=== PATIENT | female | born 1960 | race Caucasian/White ===

== ENCOUNTER 2018-07-16 23:16 | Observation (INO) | payer OTHER ==
[2018-07-16] MEDS ORDERED: Thiamine IV* 100 MG, Folic Acid IV* 1 MG, Multiple Vitamin IV ADULT* 10 ML in NS 0.9% 1... IV ONE (23:47)
[2018-07-16] MEDS ORDERED: LORazepam INJ* 2 MG/ML 1 ML VIAL IV PUSH ONE (23:54)
[2018-07-16] MEDS ORDERED: Ondansetron INJ* 2 MG/ML VIAL IV ONE (23:54)
[2018-07-16] MEDS ORDERED: Lorazepam PYXIS KEY PRN (23:54)
[2018-07-16] MEDS ORDERED: Lorazepam PYXIS KEY ONE (23:58)
[2018-07-16] MEDS ORDERED: LORazepam INJ* 2 MG/ML 1 ML VIAL ONE (23:59)
[2018-07-16] MEDS ORDERED: NS 0.9% 1000 ML** 1,000 ML ONE (23:59)
[2018-07-17 00:21] LABS: ABS Basophils 0.1 10^3/ul (0-0.2); ABS Lymphocytes 2.5 10^3/ul (1.0-4.8); ABS Monocytes 0.6 10^3/ul (0-0.8); ABS Neutrophils 9.2 10^3/ul (1.5-7.7); Hematocrit 36 % (35-47); Hemoglobin 12.5 g/dL (12.0-16.0); Lymphocyte % 20.4 %; Mean Corpuscular HGB Conc 35 g/dL (31-36); Mean Corpuscular Hemoglobin 30 pg (27-31); Mean Corpuscular Volume 87 fL (80-97); Mean Platelet Volume 7.1 fL (7.4-10.4); Platelet Count 244 10^3/uL (150-450); Red Blood Count 4.15 10^6 /uL (3.70-4.87); Red Cell Distribution Width 14 % (10-15); White Blood Count 12.3 10^3/uL (3.5-10.8)
--- NOTE | 2018-07-17 00:32 | ED ---
Substance Abuse/Use - HPI Summary HPI Summary: 57-year-old female presents with alcohol withdrawal symptoms yesterday. She relates drinking about a liter of vodka a day. States she stopped drinking yesterday. She states that she has felt very ill. She denies nausea vomiting. She states she has not been able to keep anything down today. She admits to a moderately severe headache. She has tremor in her arms and legs. She admits to anxiety and agitation. Denies any auditory or visual or tactile hallucinations. She states she has gone through withdrawals in the past and has had a seizure due to such and DTs. She denies any drug use. Has no medical conditions. - History Of Current Complaint Chief Complaint: EDOverdose Stated Complaint: ETOH PER EMS Time Seen by Provider: 07/16/18 23:45 - Allergies/Home Medications Allergies/Adverse Reactions: Allergies Allergy/AdvReac Type Severity Reaction Status Date / Time MS Sulfa Drugs [Sulfa Drugs] Allergy Unknown Unknown Verified 10/31/16 14:24 Reaction Details Home Medications: Home Medications NK [No Home Medications Reported] 07/17/18 [History Confirmed 07/17/18] PMH/Surg Hx/FS Hx/Imm Hx Endocrine/Hematology History: Denies: Hx Anticoagulant Therapy, Hx Diabetes Cardiovascular History: Denies: Hx Hypertension, Hx Pacemaker/ICD Respiratory History: Denies: Hx Asthma GI History: Reports: Other GI Disorders - CONSTIPATION History: Denies: Hx Renal Disease Musculoskeletal History: Reports: Hx Bursitis Denies: Hx Osteoporosis Sensory History: Reports: Hx Contacts or Glasses Denies: Hx Hearing Aid Opthamlomology History: Reports: Hx Contacts or Glasses Neurological History: Reports: Hx Seizures - x3 in 3-4 yrs, EtOH withdrawal related Psychiatric History: Reports: Hx Anxiety, Hx Depression, Hx Substance Abuse - alcohol, "1 liter/day x 30 years" Denies: Hx Panic Disorder Infectious Disease History: No Infectious Disease History: Denies: Traveled Outside the [place] in Last 30 Days - Family History Known Family History: Positive: Other - father of pancreatic cancer - Social History Alcohol Use: Daily Alcohol Amount: 1L of vodka Substance Use Type: Reports: None Substance Use Comment - Amount & Last Used: 3 times a year Hx Tobacco Use: Yes Smoking Status (MU): Current Every Day Smoker Type: Cigarettes Review of Systems Negative: Fever Negative: Chest Pain Negative: Shortness Of Breath Positive: Abdominal Pain, Vomiting, Nausea Neurological: Other - tremors Positive: Headache All Other Systems Reviewed And Are Negative: Yes Physical Exam Triage Information Reviewed: Yes Vital Signs On Initial Exam: Initial Vitals Temp Pulse Resp BP Pulse Ox 98.4 F 101 20 123/87 98 07/16/18 23:25 07/16/18 23:25 07/16/18 23:25 07/16/18 23:25 07/16/18 23:25 Vital Signs Reviewed: Yes Appearance: Positive: Well-Appearing Skin: Positive: Warm, Dry Head/Face: Positive: Normal Head/Face Inspection Eyes: Positive: Normal, EOMI, ALLYSON, Conjunctiva Clear ENT: Positive: Normal ENT inspection, Pharynx normal, TMs normal Respiratory/Lung Sounds: Positive: Clear to Auscultation, Breath Sounds Present Cardiovascular: Positive: Normal, RRR Abdomen Description: Positive: Nontender, Soft Bowel Sounds: Positive: Present Musculoskeletal: Positive: Normal Neurological: Positive: Normal Psychiatric: Positive: Normal Diagnostics - Vital Signs Vital Signs Temp Pulse Resp BP Pulse Ox 07/17/18 00:04 18 07/16/18 23:49 93 16 94 07/16/18 23:29 95 16 123/87 93 07/16/18 23:25 98.4 F 101 20 123/87 98 - Laboratory Lab Results: Lab Results 07/17/18 Range/Units 00:13 WBC 12.3 H (3.5-10.8) 10^3/uL RBC 4.15 (3.70-4.87) 10^6 /uL Hgb 12.5 (12.0-16.0) g/dL Hct 36 (35-47) % MCV 87 (80-97) fL MCH 30 (27-31) pg MCHC 35 (31-36) g/dL RDW 14 (10-15) % Plt Count 244 (150-450) 10^3/uL MPV 7.1 L (7.4-10.4) fL Neut % (Auto) 74.3 % Lymph % (Auto) 20.4 % [place] % (Auto) 4.8 % Eos % (Auto) 0.0 % Baso % (Auto) 0.5 % Absolute Neuts (auto) 9.2 H (1.5-7.7) 10^3/ul Absolute Lymphs (auto) 2.5 (1.0-4.8) 10^3/ul Absolute Monos (auto) 0.6 (0-0.8) 10^3/ul Absolute Eos (auto) 0.0 (0-0.6) 10^3/ul Absolute Basos (auto) 0.1 (0-0.2) 10^3/ul Absolute Nucleated RBC 0.0 10^3/ul Nucleated RBC % 0.0 Result Diagrams: 07/17/18 00:13 07/17/18 00:13 Lab Statement: Any lab studies that have been ordered have been reviewed, and results considered in the medical decision making process. Re-Evaluation - Re-Evaluation First Eval Re-Evaluation Time: 00:32 Change: Improved Comment: feeling better after ativan but still has tremor present Second Eval Re-Evaluation Time: 01:42 Comment: attempted to walk and was unable to do so Course/Dx - Course Course Of Treatment: 57-year-old female presents with alcohol withdrawal symptoms yesterday. She relates drinking about a liter of vodka a day. States she stopped drinking yesterday. She states that she has felt very ill. She denies nausea vomiting. She states she has not been able to keep anything down today. She admits to a moderately severe headache. She has tremor in her arms and legs. She admits to anxiety and agitation. Denies any auditory or visual or tactile hallucinations. She states she has gone through withdrawals in the past and has had a seizure due to such and DTs. She denies any drug use. Has no medical conditions. On exam resting tremor noted of hands. sweat visible on patient. Patient appears anxious and agitated. Lungs clear auscultation. Sodium and chloride are low. Gave a banana bag and Ativan and feeling better. [id number] 20 initally. patient attempted to ambulate and was unable to do so. discussed with dr mccloud who agrees to admit. - Diagnoses Differential Diagnosis/HQI/PQRI: Positive: Alcohol Withdrawal, Delirium Tremens , Metabolic Disorder Provider Diagnoses: Alcohol withdrawal Discharge - Sign-Out/Discharge Documenting (check all that apply): Patient Departure - Discharge Plan Condition: Stable Disposition: ADMITTED TO [facility] Referrals: Tez Kirk MD [Retired//Other] - - Billing Disposition and Condition Condition: STABLE Disposition: Admitted to [facility]
[2018-07-17 00:36] LABS: ALT 20 U/L (7-52); AST 32 U/L (13-39); Albumin 4.4 g/dL (3.2-5.2); Albumin/Globulin Ratio 1.6 (1-3); Alkaline Phosphatase 104 U/L (34-104); Anion Gap 13 mmol/L (2-11); BUN/Creatinine Ratio 20.8 (8-20); Blood Urea Nitrogen 10 mg/dL (6-24); CO2 Carbon Dioxide 22 mmol/L (22-32); Calcium 9.6 mg/dL (8.6-10.3); Chloride 92 mmol/L (101-111); EGFR African American 161.3 (>60); EGFR Non-African American 133.3 (>60); Globulin 2.7 g/dL (2-4); Glucose 194 mg/dL (70-100); Magnesium 1.5 mg/dL (1.9-2.7); Potassium 4.3 mmol/L (3.5-5.0); Sodium 127 mmol/L (135-145); Total Protein 7.1 g/dL (6.4-8.9)
[2018-07-17] MEDS ORDERED: Magnesium Sulfate 2 GM IV* 2 GM/50 ML BAG IVPB ONE (00:51)
[2018-07-17 00:57] LABS: Alcohol < 10 mg/dL (<10)
[2018-07-17 01:12] LABS: TSH (Thyroid Stimulating Horm) 0.99 mcIU/mL (0.34-5.60)
[2018-07-17] MEDS ORDERED: Al Hydrox/Mg Hydrox/Simet LIQ* 30 ML UDC PO PRN (02:21)
[2018-07-17] MEDS ORDERED: LORazepam INJ* 2 MG/ML 1 ML VIAL IV PUSH SCH ×3 (03:00→10:26)
[2018-07-17] MEDS: Enoxaparin(*) 40 MG/0.4 ML SYR SUBCUT SCH (04:04)
[2018-07-17] MEDS: Ondansetron INJ* 2 MG/ML VIAL IV PRN ×2 (04:04→10:18)
[2018-07-17] MEDS: Lactated Ringers 1000 ML Bag* 1,000 ML IV SCH ×2 (04:05→12:55)
[2018-07-17] MEDS: Acetaminophen TAB* 325 MG PO PRN (04:06)
[2018-07-17] MEDS: Nicotine PATCH 14 MG/24 HR* PATCH TRANSDERM SCH ×2 (04:08→08:54)
--- NOTE | 2018-07-17 05:25 | HP ---
HISTORY AND PHYSICAL: DATE OF ADMISSION: 07/17/18 TIME OF EVALUATION: 0200 PRIMARY CARE PHYSICIAN: The patient does not have a primary care physician. CHIEF COMPLAINT: Shaking, recent alcohol use, nausea, vomiting. HISTORY OF PRESENT ILLNESS: This is a 57-year-old female with a past medical history of alcohol abuse, who states she fell off the wagon, has been drinking a liter per day for the past 4 days. She tried to stop drinking. She had a small drink the morning of 07/16/18 and then stopped, tried to abstain and began having nausea, vomiting, epigastric pain, shakes, withdrawal symptoms and came to the emergency room for further evaluation. No diarrhea, no fevers, no hallucinations, no chest pain, no shortness of breath. She states she had been doing really well up until 4 days ago. She has been sober since March. She has issues with alcohol abuse off and on for the past 40 years. Otherwise, remaining review of systems is negative. In the emergency room, the patient had labs. She was given a banana bag, a liter of fluid, 4 mg of Zofran, 2 g of magnesium, 3 mg of Ativan, referred to the hospitalist service for further evaluation. PAST MEDICAL HISTORY: 1. History of alcohol abuse with seizures secondary to withdrawal. 2. Tobacco use. MEDICATIONS: None. ALLERGIES: SULFA. SOCIAL HISTORY: The patient lives with her boyfriend, Yuriy Miranda, who is her healthcare proxy. As mentioned, she has a history of alcohol abuse. Currently , 1 liter of vodka per day, has been drinking off and on for the past 40 years. She also smokes 8 to 12 cigarettes per day for the past 40 years. No illicit drug use. She works in [employer]. Code status is full code. FAMILY HISTORY: Her uncle with alcohol abuse. No other family members with alcohol abuse. REVIEW OF SYSTEMS: A 14-point review of systems as mentioned in the HPI, otherwise negative. PHYSICAL EXAMINATION GENERAL: No acute distress, resting comfortably. VITAL SIGNS: Temp 98.4, pulse rate 90, respiratory rate 17, oxygen saturation 98% on 2 L, blood pressure 121/96. HEENT: Head normocephalic. Pupils are mildly dilated, reactive. Conjunctivae injected. Oropharynx: Mucous membranes are moist. No erythema or exudate. RESPIRATORY: Diminished breath sounds. No wheezes, rhonchi, or rales. CARDIAC: Tachycardic, systolic murmur heard throughout. ABDOMEN: Positive bowel sounds. Soft, nontender, nondistended. No rebound or guarding. EXTREMITIES: Without clubbing, cyanosis, or edema. +1 DPs. NEUROLOGIC: Alert and oriented x3. No gross focal neurologic deficits. Mild tremor. DIAGNOSTIC STUDIES/LAB DATA: White count 12.3, hemoglobin 12.5, hematocrit 36 , platelets 244. Sodium 127, potassium 4.3, chloride 92, bicarb 22, BUN 10, creatinine 0.48, glucose 194, mag is 1.5, total bili is 1.5. Alcohol is less than 10. ASSESSMENT: This is a 57-year-old female with past medical history of alcohol abuse, who presents to the emergency room with alcohol withdrawal symptoms in the setting of a recent binge. 1. Alcohol withdrawal. Assessment: The patient states she fell off the wagon , has been drinking a liter of vodka per day for the past 4 days. Last drink was the morning of 07/16/18. Her alcohol level is 0. The patient with no significant withdrawal symptoms, mildly tremulous, mildly tachycardic. Plan: It is not unreasonable to admit her overnight for observation, place her on the [facility] protocol, Ativan as needed per the protocol, IV fluids, and follow up with Social Work to discuss rehab and to establish with a primary care physician. We will repeat her labs in the morning with a mildly elevated T-bili in the setting of likely alcohol use and a low mag, we will repeat those in the morning. Will start Gabapentin 300 mg TID and to help with benzodiapine sparing and recommend taper down over time. 2. Tobacco use. Place her on nicotine patch. 3. FEN: Regular diet. IV fluids. 4. DVT prophylaxis. The patient's score is moderate risk. We will place her on Lovenox subcu daily. 5. Code status: Full code. PATIENT TIME: Greater than 30 minutes was spent doing the history and physical , more than half of that time was in direct patient contact. [id number]/[facility] #: [id number] MTDD
[2018-07-17] MEDS ORDERED: Nicotine Patch Removal NOTE FOLLOW UP SCH (06:00)
[2018-07-17 06:08] LABS: ABS Eosinophils 0.1 10^3/ul (0-0.6); ABS Monocytes 0.6 10^3/ul (0-0.8); ABS Neutrophils 7.3 10^3/ul (1.5-7.7); Eosinophil % 0.5 %; Hematocrit 39 % (35-47); Hemoglobin 13.2 g/dL (12.0-16.0); Lymphocyte % 27.5 %; Mean Corpuscular HGB Conc 34 g/dL (31-36); Mean Corpuscular Hemoglobin 30 pg (27-31); Mean Corpuscular Volume 88 fL (80-97); Mean Platelet Volume 7.7 fL (7.4-10.4); Nucleated Red Blood Cells % 0.1; Platelet Count 232 10^3/uL (150-450); Red Blood Count 4.37 10^6 /uL (3.70-4.87); Red Cell Distribution Width 14 % (10-15); White Blood Count 11.1 10^3/uL (3.5-10.8)
[2018-07-17 06:30] LABS: Albumin 4.1 g/dL (3.2-5.2); Albumin/Globulin Ratio 1.7 (1-3); BUN/Creatinine Ratio 17.4 (8-20); EGFR African American 169.4 (>60); Globulin 2.4 g/dL (2-4); Potassium 3.9 mmol/L (3.5-5.0); Total Bilirubin 1.8 mg/dL (0.2-1.0); Total Protein 6.5 g/dL (6.4-8.9)
[2018-07-17] MEDS: Folic Acid TAB* 1 MG PO SCH (08:51)
[2018-07-17] MEDS: Multivitamins/Minerals TAB PO SCH (08:51)
[2018-07-17] MEDS: Polyethylene Glycol 3350* 17 GM PACKET PO PRN (08:51)
[2018-07-17] MEDS: Thiamine TAB* 100 MG TAB PO SCH (08:51)
--- NOTE | 2018-07-17 10:21 | PN ---
Subjective Date of Service: 07/17/18 Interval History: Patient awakes to touch from sleep. Pt reports nausea, but no vomiting or abd pain. Denies chest pain or difficulty breathing. Nursing reports patient is incontinent of urine and unable to ambulate to bathroom without assistance. Objective Active Medications: Acetaminophen (Tylenol Tab*) 650 mg PO Q4H PRN PRN Reason: FEVER/PAIN Last Admin: 07/17/18 04:06 Dose: 650 mg Al Hydrox/Mg Hydrox/Simethicone (Maalox Plus*) 30 ml PO Q6H PRN PRN Reason: INDIGESTION Enoxaparin Sodium (Lovenox(*)) 40 mg SUBCUT Q24H [facility] Last Admin: 07/17/18 04:04 Dose: 40 mg Folic Acid (Folvite Tab*) 1 mg PO DAILY [facility] Last Admin: 07/17/18 08:51 Dose: 1 mg Lactated Ringer's (Lactated Ringers 1000 Ml Bag*) 1,000 mls @ 125 mls/hr IV PER RATE [facility] Last Admin: 07/17/18 04:05 Dose: 125 mls/hr Lorazepam (Ativan Inj*) 0 - 8 mg IV PUSH .PER [facility] PROTOCOL [facility]; Protocol Last Admin: 07/17/18 06:17 Dose: 2 mg Miscellaneous (Ativan Pyxis Rosa) 1 ea N/A .ATIVAN IV ROSA PRN PRN Reason: PYXIS ROSA Multivitamins/Minerals (Theragran/Minerals Tab*) 1 tab PO DAILY [facility] Last Admin: 07/17/18 08:51 Dose: 1 tab Nicotine (Nicotine Patch 14 Mg/24 Hr*) 1 patch TRANSDERM 0900 [facility] Last Admin: 07/17/18 08:54 Dose: 1 patch Ondansetron HCl (Zofran Inj*) 4 mg IV Q4H PRN PRN Reason: NAUSEA/VOMITING Last Admin: 07/17/18 04:04 Dose: 4 mg Pharmacy Profile Note (Nicotine Patch Removal Note*) 1 note PATCH OFF 2100 [facility] Polyethylene Glycol/Electrolytes (Miralax*) 17 gm PO DAILY PRN PRN Reason: CONSTIPATION Last Admin: 07/17/18 08:51 Dose: 17 gm Thiamine HCl (Vitamin B-1 Tab*) 100 mg PO DAILY [facility] Last Admin: 07/17/18 08:51 Dose: 100 mg Vital Signs - 8 hr 06/11/19 06/11/19 06/11/19 02:36 02:54 03:00 Temperature 98.6 F Pulse Rate 90 70 88 Respiratory 18 Rate Blood Pressure 112/85 112/85 (mmHg) O2 Sat by Pulse 94 94 94 Oximetry 07/17/18 07/17/18 07/17/18 03:06 03:16 03:42 Temperature 99 F Pulse Rate 90 90 Respiratory 18 18 Rate Blood Pressure 111/81 122/83 (mmHg) O2 Sat by Pulse 94 99 Oximetry 07/17/18 07/17/18 07/17/18 04:00 04:07 05:00 Temperature Pulse Rate Respiratory 10 18 18 Rate Blood Pressure (mmHg) O2 Sat by Pulse Oximetry 07/17/18 07/17/18 07/17/18 05:03 05:27 05:29 Temperature 97.5 F Pulse Rate 90 Respiratory 16 18 18 Rate Blood Pressure 117/83 (mmHg) O2 Sat by Pulse 96 Oximetry 07/17/18 07/17/18 07/17/18 06:17 07:28 08:00 Temperature 97.8 F Pulse Rate 100 Respiratory 18 17 18 Rate Blood Pressure 125/84 (mmHg) O2 Sat by Pulse 97 Oximetry 07/17/18 09:48 Temperature 97.6 F Pulse Rate 100 Respiratory 18 Rate Blood Pressure 124/88 (mmHg) O2 Sat by Pulse 96 Oximetry Oxygen Devices in Use Now: None Appearance: Thin woman, appears older than stated age, laying comfortably in hospital bed, appearing in NAD; tremulous Eyes: No Scleral Icterus, PERRLA Ears/Nose/Mouth/Throat: Mucous Membranes Moist Neck: NL Appearance and Movements; NL JVP Respiratory: Symmetrical Chest Expansion and Respiratory Effort, Clear to Auscultation Cardiovascular: NL Sounds; No Murmurs; No JVD, RRR Abdominal: - - abdomen soft, nontender, nondistended Extremities: No Edema, No Clubbing, Cyanosis Skin: No Rash or Ulcers, - - minimally diaphoretic Neurological: - - Oriented x 4, minimally lethargic at times but answers questions appropriately and easily awakens to voice; strength 4/5 in all extremities Result Diagrams: 07/17/18 05:23 07/17/18 05:23 Additional Lab and Data: Lab Results 07/17/18 Range/Units 00:13 WBC 12.3 H (3.5-10.8) 10^3/uL RBC 4.15 (3.70-4.87) 10^6 /uL Hgb 12.5 (12.0-16.0) g/dL Hct 36 (35-47) % MCV 87 (80-97) fL MCH 30 (27-31) pg MCHC 35 (31-36) g/dL RDW 14 (10-15) % Plt Count 244 (150-450) 10^3/uL MPV 7.1 L (7.4-10.4) fL Neut % (Auto) 74.3 % Lymph % (Auto) 20.4 % [place] % (Auto) 4.8 % Eos % (Auto) 0.0 % Baso % (Auto) 0.5 % Absolute Neuts (auto) 9.2 H (1.5-7.7) 10^3/ul Absolute Lymphs (auto) 2.5 (1.0-4.8) 10^3/ul Absolute Monos (auto) 0.6 (0-0.8) 10^3/ul Absolute Eos (auto) 0.0 (0-0.6) 10^3/ul Absolute Basos (auto) 0.1 (0-0.2) 10^3/ul Absolute Nucleated RBC 0.0 10^3/ul Nucleated RBC % 0.0 Assess/Plan/Problems-Billing Assessment: 57 yo female with PMHx alcohol abuse with hx of withdrawal seizure presents with weakness, nausea, vomiting after attempting to abstain from alcohol use. - Patient Problems (1) Alcohol withdrawal Code(s): F10.239 - ALCOHOL DEPENDENCE WITH WITHDRAWAL, UNSPECIFIED SNOMED Code (s): 468733497 Comment: -patient previously drinking 1 L vodka per day leading up to admission -score of 9 on WAM this morning; continue [facility] protocol assessment -hx of withdrawal seizures; ordered scheduled IV ativan taper as patient is lethargic this AM and likely poor po intake -continue IVF, thiamine and folic acid -nausea is persistent today; continue prn zofran -up until 4 days prior to admission, patient had been sober for ~4 months; SW involved for alcohol rehab options (2) Hyponatremia Code(s): E87.1 - HYPO-OSMOLALITY AND HYPONATREMIA SNOMED Code(s): 64620871 Comment: -patient with Na of 127 at admission -improving, Na 133 today -likely due to poor po intake and hypovolemia in setting of alcohol use (3) Elevated bilirubin Code(s): R17 - UNSPECIFIED JAUNDICE SNOMED Code(s): 19167572 Comment: -elevated to 1.8, likely due to longstanding alcohol use disorder -no transaminitis -H&H stable (4) DVT prophylaxis Code(s): VKI5376 - SNOMED Code(s): 719139351 Comment: -lovenox (5) Full code status Code(s): Z78.9 - OTHER SPECIFIED HEALTH STATUS SNOMED Code(s): 777657858 Status and Disposition: Inpatient; awaiting SW evaluation for possibility of inpatient vs outpatient rehab
[2018-07-17] MEDS: LORazepam INJ* 2 MG/ML 1 ML VIAL IV SCH ×2 (12:14→17:59)
[2018-07-17 12:15] LABS: INR 1.03 (0.82-1.09)
[2018-07-17 13:28] LABS: Urine Appearance Cloudy; Urine Bacteria 1+ (Absent); Urine Bilirubin Negative (Negative); Urine Blood Negative (Negative); Urine Color Yellow; Urine Glucose Negative (Negative); Urine Ketones Trace (Negative); Urine Nitrite Negative (Negative); Urine Protein Negative (Negative); Urine Red Blood Cell Trace(0-2/hpf) (Absent); Urine Specific Gravity 1.008 (1.010-1.030); Urine Squamous Epithelial Cell Present (Absent); Urine Urobilinogen Negative (Negative); Urine White Blood Cell 1+(6-10/hpf) (Absent)
[2018-07-17 13:30] LABS: Urine Benzodiazepine Screen None Detected (None Detect); Urine Opiates Screen None Detected (None Detect)
[2018-07-17] MEDS: Gabapentin CAP(*) 300 MG PO SCH (20:24)
[2018-07-17] MEDS: Nicotine Patch Removal NOTE PATCH OFF SCH (21:58)
[2018-07-18] MEDS: Lactated Ringers 1000 ML Bag* 1,000 ML IV SCH ×3 (00:02→17:16)
[2018-07-18] MEDS: Enoxaparin(*) 40 MG/0.4 ML SYR SUBCUT SCH (03:57)
[2018-07-18 05:45] LABS: Hematocrit 38 % (35-47); Hemoglobin 12.9 g/dL (12.0-16.0); Mean Corpuscular HGB Conc 34 g/dL (31-36); Mean Corpuscular Hemoglobin 30 pg (27-31); Mean Corpuscular Volume 89 fL (80-97); Mean Platelet Volume 7.9 fL (7.4-10.4); Platelet Count 190 10^3/uL (150-450); Red Blood Count 4.26 10^6 /uL (3.70-4.87); Red Cell Distribution Width 14 % (10-15); White Blood Count 7.4 10^3/uL (3.5-10.8)
[2018-07-18 06:02] LABS: Albumin 3.8 g/dL (3.2-5.2); Albumin/Globulin Ratio 1.5 (1-3); BUN/Creatinine Ratio 15.8 (8-20); Calcium 9.3 mg/dL (8.6-10.3); EGFR African American 211.2 (>60); EGFR Non-African American 174.6 (>60); Globulin 2.5 g/dL (2-4); Potassium 3.5 mmol/L (3.5-5.0); Total Bilirubin 0.9 mg/dL (0.2-1.0); Total Protein 6.3 g/dL (6.4-8.9)
[2018-07-18] MEDS: Gabapentin CAP(*) 300 MG PO SCH ×3 (07:43→20:53)
[2018-07-18] MEDS: Nicotine PATCH 14 MG/24 HR* PATCH TRANSDERM SCH (07:45)
[2018-07-18] MEDS: Thiamine TAB* 100 MG TAB PO SCH (07:45)
[2018-07-18] MEDS: Multivitamins/Minerals TAB PO SCH (07:45)
[2018-07-18] MEDS: Folic Acid TAB* 1 MG PO SCH (07:45)
--- NOTE | 2018-07-18 14:59 | PN ---
Subjective Date of Service: 07/18/18 Interval History: Patient is awake and answering questions appropriately. States she is not interested in inpatient or outpatient drug and alcohol rehab. Refuses referral to outpatient addiction counselor. Expresses interest in naltrexone prescription. Nausea is resolved today. Patient denies dizziness, chest pain, difficulty breathing, vomiting, diarrhea. Nursing reports patient continues to be unsteady on her feet and is unable to walk to bathroom without assistance. Objective Active Medications: Acetaminophen (Tylenol Tab*) 650 mg PO Q4H PRN PRN Reason: FEVER/PAIN Last Admin: 07/17/18 04:06 Dose: 650 mg Al Hydrox/Mg Hydrox/Simethicone (Maalox Plus*) 30 ml PO Q6H PRN PRN Reason: INDIGESTION Enoxaparin Sodium (Lovenox(*)) 40 mg SUBCUT Q24H [facility] Last Admin: 07/18/18 03:57 Dose: 40 mg Folic Acid (Folvite Tab*) 1 mg PO DAILY [facility] Last Admin: 07/18/18 07:45 Dose: 1 mg Gabapentin (Neurontin Cap(*)) 300 mg PO TID [facility] Last Admin: 07/18/18 13:45 Dose: 300 mg Lactated Ringer's (Lactated Ringers 1000 Ml Bag*) 1,000 mls @ 125 mls/hr IV PER RATE [facility] Last Admin: 07/18/18 09:06 Dose: 125 mls/hr Lorazepam (Ativan Inj*) 0 - 8 mg IV PUSH .PER [facility] PROTOCOL [facility]; Protocol Last Admin: 07/17/18 18:10 Dose: 4 mg Miscellaneous (Ativan Pyxis Rosa) 1 ea N/A .ATIVAN IV ROSA PRN PRN Reason: PYXIS ROSA Multivitamins/Minerals (Theragran/Minerals Tab*) 1 tab PO DAILY [facility] Last Admin: 07/18/18 07:45 Dose: 1 tab Nicotine (Nicotine Patch 14 Mg/24 Hr*) 1 patch TRANSDERM 0900 [facility] Last Admin: 07/18/18 07:45 Dose: 1 patch Ondansetron HCl (Zofran Inj*) 4 mg IV Q4H PRN PRN Reason: NAUSEA/VOMITING Last Admin: 07/17/18 10:18 Dose: 4 mg Pharmacy Profile Note (Nicotine Patch Removal Note*) 1 note PATCH OFF 2100 [facility] Last Admin: 07/17/18 21:58 Dose: 1 note Polyethylene Glycol/Electrolytes (Miralax*) 17 gm PO DAILY PRN PRN Reason: CONSTIPATION Last Admin: 07/17/18 08:51 Dose: 17 gm Thiamine HCl (Vitamin B-1 Tab*) 100 mg PO DAILY [facility] Last Admin: 07/18/18 07:45 Dose: 100 mg Vital Signs - 8 hr 07/18/18 07/18/18 07/18/18 08:00 08:21 10:00 Temperature 97.9 F 98.1 F Pulse Rate 92 89 Respiratory 18 18 16 Rate Blood Pressure 124/88 135/85 (mmHg) O2 Sat by Pulse 92 95 Oximetry 07/18/18 07/18/18 07/18/18 12:09 13:45 14:22 Temperature 97.3 F 98.3 F Pulse Rate 93 95 Respiratory 18 16 Rate Blood Pressure 149/91 108/83 (mmHg) O2 Sat by Pulse 97 Oximetry Oxygen Devices in Use Now: None Appearance: Thin, white female, laying in hospital bed, appearing in NAD; tremulous Eyes: No Scleral Icterus, PERRLA Ears/Nose/Mouth/Throat: Mucous Membranes Moist Neck: NL Appearance and Movements; NL JVP Respiratory: Symmetrical Chest Expansion and Respiratory Effort, Clear to Auscultation Cardiovascular: NL Sounds; No Murmurs; No JVD, RRR Abdominal: - - abd soft, nontender, nondistended Extremities: No Edema, No Clubbing, Cyanosis Skin: No Rash or Ulcers Neurological: Alert and Oriented x 3, NL Muscle Strength and Tone Result Diagrams: 07/18/18 05:09 07/18/18 05:09 Additional Lab and Data: Lab Results 07/17/18 Range/Units 00:13 WBC 12.3 H (3.5-10.8) 10^3/uL RBC 4.15 (3.70-4.87) 10^6 /uL Hgb 12.5 (12.0-16.0) g/dL Hct 36 (35-47) % MCV 87 (80-97) fL MCH 30 (27-31) pg MCHC 35 (31-36) g/dL RDW 14 (10-15) % Plt Count 244 (150-450) 10^3/uL MPV 7.1 L (7.4-10.4) fL Neut % (Auto) 74.3 % Lymph % (Auto) 20.4 % [place] % (Auto) 4.8 % Eos % (Auto) 0.0 % Baso % (Auto) 0.5 % Absolute Neuts (auto) 9.2 H (1.5-7.7) 10^3/ul Absolute Lymphs (auto) 2.5 (1.0-4.8) 10^3/ul Absolute Monos (auto) 0.6 (0-0.8) 10^3/ul Absolute Eos (auto) 0.0 (0-0.6) 10^3/ul Absolute Basos (auto) 0.1 (0-0.2) 10^3/ul Absolute Nucleated RBC 0.0 10^3/ul Nucleated RBC % 0.0 Microbiology and Other Data: Microbiology 07/17/18 00:00 Urine Culture - Final Urine Assess/Plan/Problems-Billing Assessment: 57 yo female with PMHx alcohol abuse with hx of withdrawal seizure presents with weakness, nausea, vomiting after attempting to abstain from alcohol use. - Patient Problems (1) Alcohol withdrawal Code(s): F10.239 - ALCOHOL DEPENDENCE WITH WITHDRAWAL, UNSPECIFIED SNOMED Code (s): 799735756 Comment: -patient previously drinking 1 L vodka per day leading up to admission -patient has not scored on WAM assessments since yesterday evening; continue [facility] protocol -hx of withdrawal seizures; ordered scheduled IV ativan taper as patient is lethargic this AM and likely poor po intake -continue thiamine and folic acid -nausea is resolved, but tremors and instability continues -patient refusing alcohol rehab options from myself and social work -started naltrexone 50mg po (2) Hyponatremia Code(s): E87.1 - HYPO-OSMOLALITY AND HYPONATREMIA SNOMED Code(s): 93402479 Comment: -patient with Na of 127 at admission -resolved; Na 136 today (3) Elevated AST (SGOT) Code(s): R74.0 - NONSPEC ELEV OF LEVELS OF TRANSAMNS & LACTIC ACID DEHYDRGNSE SNOMED Code(s): 152198469 Comment: -consistent with alcohol use -AST 47, ALT 27 -ammonia is minimally elevated to 62 -ordering abdominal US to r/o cirrhosis to ensure safety of prescribing naltrexone (4) Elevated bilirubin Code(s): R17 - UNSPECIFIED JAUNDICE SNOMED Code(s): 58337466 Comment: -resolved today (previously 1.80) -H&H stable (5) DVT prophylaxis Code(s): LCT6653 - SNOMED Code(s): 521595594 Comment: -lovenox (6) Full code status Code(s): Z78.9 - OTHER SPECIFIED HEALTH STATUS SNOMED Code(s): 077729812 Status and Disposition: Inpatient until medically stable to return home
[2018-07-18] MEDS: Naltrexone TAB* 50 MG TAB PO SCH (16:30)
[2018-07-18] MEDS: Nicotine Patch Removal NOTE PATCH OFF SCH (20:56)
[2018-07-19] MEDS: Acetaminophen TAB* 325 MG PO PRN ×2 (01:37→13:09)
[2018-07-19] MEDS: Enoxaparin(*) 40 MG/0.4 ML SYR SUBCUT SCH (01:40)
[2018-07-19] MEDS: Lactated Ringers 1000 ML Bag* 1,000 ML IV SCH ×2 (01:43→09:54)
[2018-07-19] MEDS: Nicotine PATCH 14 MG/24 HR* PATCH TRANSDERM SCH (09:28)
[2018-07-19] MEDS: Polyethylene Glycol 3350* 17 GM PACKET PO PRN (09:28)
[2018-07-19] MEDS: Gabapentin CAP(*) 300 MG PO SCH ×2 (09:29→13:10)
[2018-07-19] MEDS: Multivitamins/Minerals TAB PO SCH (09:29)
[2018-07-19] MEDS: Folic Acid TAB* 1 MG PO SCH (09:29)
[2018-07-19] MEDS: Thiamine TAB* 100 MG TAB PO SCH (09:29)
[2018-07-19] MEDS: Naltrexone TAB* 50 MG TAB PO SCH (09:29)
[2018-07-19 10:55] VITALS: BP 132/81
--- NOTE | 2018-07-19 15:00 | DS ---
DISCHARGE SUMMARY: DATE OF ADMISSION: 07/17/18 DATE OF DISCHARGE: 07/19/18 ATTENDING PHYSICIAN: Dr. Jovani Chavez * (dictated by JW Webster) PRIMARY DIAGNOSES: 1. Alcohol withdrawal. 2. Alcoholic fatty liver disease. SECONDARY DIAGNOSES: 1. Alcohol abuse. 2. History of alcohol withdrawal seizures. 3. Tobacco use. STUDIES WHILE IN THE HOSPITAL: Abdominal ultrasound on 07/19/18 demonstrated fatty infiltration of the liver and cholelithiasis. PERTINENT LAB DATA: AST 47, ALT 27, alk phos 95, ammonia 62. DISCHARGE MEDICATIONS: 1. Naltrexone 50 mg p.o. daily. 2. Multivitamin 1 tab p.o. daily. 3. Thiamine 100 mg p.o. daily. 4. Nicotine patch 14 mg/24 hours. Continued home medications: Not applicable as the patient was previously not taking any medications at home. HISTORY OF PRESENT ILLNESS/HOSPITAL COURSE: Nessa Bueno is a 57-year-old white female with a past medical history of alcohol use and history of withdrawal seizures, who presented to the emergency department on 07/17/18 due to shaking, recent alcohol use, nausea and vomiting. Please see admitting history and physical dictated by Dr. Xiao Lemus on date of admission for further details. During her hospital stay, she was admitted for alcohol withdrawal and admitted on the [facility] protocol for assessment of Ativan if needed and she was additionally given gabapentin for taper over time due to history of withdrawals. She has improvement in her withdrawal symptoms by the date of discharge, resolution of nausea and vomiting and tremors resolved. During her hospital stay, she was seen by social work and refused inpatient or outpatient drug and alcohol rehab and refused referral to an addiction counselor from myself as well. She did, however, demonstrate interest in utilizing naltrexone and this was started during her hospital stay. Abdominal ultrasound was resulted as above to rule out cirrhosis in the setting of administrating naltrexone. On date of discharge, the patient is feeling well. She has no complaints. She was seen by physical therapy who gave her a walker during her evaluation and the patient had a walker at home and refused having a new walker ordered for her if she needed one. Nursing walked with the patient without a walker and she was steady on her feet and was deemed safe to go home. Denied nausea, vomiting, abdominal pain, chest pain, difficulty breathing. She did report a headache which resolved after administration of Tylenol. REVIEW OF SYSTEMS: An 11-point review of systems was completed and all pertinent positives and negatives are above in the HPI. All other systems are negative. PHYSICAL EXAMINATION: An overweight white female who appears older than stated age, lying in hospital bed, appearing in no acute distress. Head: Normocephalic, atraumatic. Eyes: PERRL. Sclerae anicteric. ENT: Mucous membranes moist. Neck: Supple without JVD. Cardio: Regular rate and rhythm without murmurs, rubs, or gallops. Lungs: Clear to auscultation throughout. Abdomen: Abdomen is soft, nontender, and nondistended. No hepatospleno- megaly. Extremities: No clubbing, cyanosis, or edema. Neuro: The patient is alert and oriented x3. No focal deficits. No tremors. Skin: Skin is warm, dry and intact. Psych: The patient is pleasant and cooperative. DISCHARGE PLAN: Diet: Regular, unrestricted diet. Activity: Increase to regular. Normal activity as tolerated, use walker if needed. The patient was advised to follow up with [facility] and appointment was made for her on 07/25/18. She was given the phone number of the office if she needs to reschedule. Again, alcohol cessation was discussed and the patient refused various types of drug and alcohol counseling interventions. At the time of followup with [facility], the nicotine patch dosages should be reevaluated for change of dosing and time line. She was advised to return to the emergency department if she is experiencing nausea , vomiting that does not allow for toleration of liquids, chest pain, difficulty breathing, loss of consciousness, other alcohol withdrawal symptoms. She was advised to notify her healthcare providers if she ever suddenly discontinues naltrexone use. CONDITION ON DISCHARGE: Stable. DISPOSITION: Home. TIME SPENT: Approximately 40 minutes was spent on this discharge, approximately half of this time was spent at bedside with the patient. JW WEBSTER [id number]/[facility] #: [id number] LUIZA
== END 2018-07-19 14:30 | disposition home or self-care (01) ==
LOC: ED 23:16 → MED 07-17 02:21 → INTOOBSV 07-17 02:21
PROVIDERS: ADMIT Pediatrics; ATTEND Internal Medicine
DX: F10.239 Alcohol dependence with withdrawal, unspecified (principal); F10.231 Alcohol dependence with withdrawal delirium; K70.0 Alcoholic fatty liver; F10.10 Alcohol abuse, uncomplicated; F17.210 Nicotine dependence, cigarettes, uncomplicated; Z88.2 Allergy status to sulfonamides; R11.2 Nausea with vomiting, unspecified; R51 Headache; R17 Unspecified jaundice; R74.0 Nonspecific elevation of levels of transaminase and lactic acid dehydrogenase [LDH]; E87.1 Hypo-osmolality and hyponatremia; K80.20 Calculus of gallbladder without cholecystitis without obstruction
CPT/HCPCS: 36415; 76700; 80053; 80307; 80320; 81003; 81015; 82140; 83690; 83735; 84443; 85025; 85027; 85610; 85730; 87086; 96365; 96366; 96367; 96372; 96375; 96376; 99284; A9270-GY; G0378; G0480; J1650; J2060; J2405; J3411; J3475

== ENCOUNTER 2019-01-16 11:57 | Day surgery (SDC) | payer OTHER ==
[~2019-01-16 11:57] MED LIST: Buffered Lidocaine 1% SYRIN* 1 ML/SYRINGE INTRADERM ONE; Cyclopentolate 1% OPTH.SOL* 2 ML BTL ONE; Ketorolac 0.5% OPHTH (NF) 0.5 % 5 ML BTL ONE; Lidocaine 1% MPF ** 5 ML VIAL ONE; Lidocaine 2% w/ EPI 1:200,000* 20 ML SDV VIAL ONE; Neomycin/Polymy/Dex OPTH.SUSP* MAXITROL 0.1% 5 ML ONE; Phenylephrine OPHTH SOL 2.5%* 2 ML ONE; Povidone Iodine 5% OPTH* 30 ML BTL ONE; Proparacaine 0.5% OPHTH.SOL* 15 ML BTL ONE
[2019-01-16] MEDS ORDERED: Midazolam* 1 MG/ML 2 ML VIAL (2 MG) ONE (15:13)
[2019-01-16 16:34] VITALS: BP 108/63
--- NOTE | 2019-01-16 21:07 | OP ---
DATE OF OPERATION: 01/16/19 [facility] DATE OF : 60 SURGEON: Vazquez Moyer M.D. PREOPERATIVE DIAGNOSIS: Cataract, right. POSTOPERATIVE DIAGNOSIS: Cataract, right. OPERATIVE PROCEDURE: Extracapsular cataract extraction with IOL, intraocular lens implant right eye. DESCRIPTION OF PROCEDURE: The patient was brought to the operating room after being given 1/2% Alcaine with epinephrine drops in the preoperative area. The eye was prepped and draped in the usual sterile fashion. Sterile drape and eyelid speculum were placed. Again, topical 1/2% Alcaine with epinephrine was given. A paracentesis incision was made at the 9 o'clock position with the No.75 blade. Clear cornea incision 2.2 x 2.2-mm was created at the 12 o'clock position starting at the anterior limbus using the 2.2-mm keratome. The anterior chamber was irrigated with 0.4 mL of 1% non-preservative intracameral lidocaine and filled with DisCoVisc. A capsulorrhexis was completed using the cystotome and the Utrata forceps. Hydrodissection was performed with balanced salt solution. The lens nucleus was removed with the Phacoemulsification handpiece without incident. Cortex was removed with the irrigation-aspiration handpiece. The capsular bag was re-inflated using DisCoVisc and an [id number] 24.5 implant was inserted with the shooter. The irrigation-aspiration handpiece was used to remove all residual DisCoVisc. The eye was refilled with balanced salt solution and the wound checked and found to be watertight. Topical Maxitrol drops were given. [id number]/[facility] #: [id number] [facility]
== END 2019-01-16 15:55 | disposition home or self-care (01) ==
LOC: OREAST 11:57
PROVIDERS: ATTEND Specialist
DX: H25.12 Age-related nuclear cataract, left eye (principal); F17.210 Nicotine dependence, cigarettes, uncomplicated; E87.5 Hyperkalemia; E83.52 Hypercalcemia
CPT/HCPCS: A9270-GY; J2250; V2632

== ENCOUNTER 2019-01-23 06:51 | Day surgery (SDC) | payer OTHER ==
[~2019-01-23 06:51] MED LIST changes: +Acetaminophen TAB* 325 MG PO PRN; -Cyclopentolate 1% OPTH.SOL* 2 ML BTL ONE; -Ketorolac 0.5% OPHTH (NF) 0.5 % 5 ML BTL ONE; -Lidocaine 1% MPF ** 5 ML VIAL ONE; -Lidocaine 2% w/ EPI 1:200,000* 20 ML SDV VIAL ONE; -Neomycin/Polymy/Dex OPTH.SUSP* MAXITROL 0.1% 5 ML ONE; -Phenylephrine OPHTH SOL 2.5%* 2 ML ONE; -Povidone Iodine 5% OPTH* 30 ML BTL ONE; -Proparacaine 0.5% OPHTH.SOL* 15 ML BTL ONE
[2019-01-23] MEDS ORDERED: Midazolam* 1 MG/ML 5 ML VIAL (5 MG) ONE (08:10)
[2019-01-23] MEDS ORDERED: fentaNYL* 50 MCG/ML 2 ML VIAL (100 MCG VIAL) ONE (08:44)
--- NOTE | 2019-01-23 09:49 | OP ---
DATE OF OPERATION: 01/23/2019 - [facility] DATE OF : 1960. SURGEON: Vazquez Moyer M.D. PREOPERATIVE DIAGNOSIS: Cataract right eye. POSTOPERATIVE DIAGNOSIS: Cataract right eye. OPERATIVE PROCEDURE: Extracapsular cataract extraction with intraocular lens implant right eye. DESCRIPTION OF PROCEDURE: The patient was brought to the operating room after being given 1/2% Alcaine with epinephrine drops in the preoperative area. The eye was prepped and draped in the usual sterile fashion. Sterile drape and eyelid speculum were placed. Again, topical 1/2% Alcaine with epinephrine was given. A paracentesis incision was made at the 9 o'clock position with the No.75 blade. Clear cornea incision 2.2 x 2.2-mm was created at the 12 o'clock position starting at the anterior limbus using the 2.2-mm keratome. The anterior chamber was irrigated with 0.4 mL of 1% non-preservative intracameral lidocaine and filled with DisCoVisc. A capsulorrhexis was completed using the cystotome and the Utrata forceps. Hydrodissection was performed with balanced salt solution. The lens nucleus was removed with the Phacoemulsification handpiece without incident. Cortex was removed with the irrigation-aspiration handpiece. The capsular bag was re-inflated using DisCoVisc and an SN60WF 21.5 implant was inserted with the shooter. The irrigation-aspiration handpiece was used to remove all residual DisCoVisc. The eye was refilled with balanced salt solution and the wound checked and found to be watertight. Topical Maxitrol drops were given. [id number]/[facility] #: [id number] [facility]
[2019-01-23] MEDS ORDERED: Povidone Iodine 5% OPTH* 30 ML BTL ONE (11:16)
[2019-01-23] MEDS ORDERED: Neomycin/Polymy/Dex OPTH.SUSP* MAXITROL 0.1% 5 ML ONE (11:16)
[2019-01-23] MEDS ORDERED: Lidocaine 1% MPF ** 5 ML VIAL ONE (11:16)
[2019-01-23] MEDS ORDERED: Cyclopentolate 1% OPTH.SOL* 2 ML BTL ONE (11:16)
[2019-01-23] MEDS ORDERED: Lidocaine 2% w/ EPI 1:200,000* 20 ML SDV VIAL ONE (11:16)
[2019-01-23] MEDS ORDERED: Phenylephrine OPHTH SOL 2.5%* 2 ML ONE (11:16)
[2019-01-23] MEDS ORDERED: Ketorolac 0.5% OPHTH (NF) 0.5 % 5 ML BTL ONE (11:16)
[2019-01-23] MEDS ORDERED: acetaZOLAMIDE TAB* 250 MG ONE (11:16)
[2019-01-23 11:40] VITALS: BP 101/66
== END 2019-01-23 09:18 | disposition home or self-care (01) ==
LOC: OREAST 06:51
PROVIDERS: ATTEND Specialist
DX: H25.11 Age-related nuclear cataract, right eye (principal); F17.210 Nicotine dependence, cigarettes, uncomplicated; F51.04 Psychophysiologic insomnia; E83.52 Hypercalcemia; E87.5 Hyperkalemia; F10.180 Alcohol abuse with alcohol-induced anxiety disorder
CPT/HCPCS: A9270-GY; J2250; J3010; V2632

== ENCOUNTER 2019-05-25 14:17 | Emergency (ER) | payer OTHER ==
[2019-05-25] MEDS ORDERED: Acetaminophen TAB* 325 MG PO ONE (14:33)
--- NOTE | 2019-05-25 14:33 | ED ---
Headache - HPI Summary HPI Summary: Pt. is a 58 y.o female who presents to the ER for a headache after a fall 3 days ago. Pt. states three days ago she got up during the night to go to the bathroom when she tripped and struck her head on a chair. Denies LOC. Pt. notes ongoing headache and has had a few episodes of vomiting. Pt. denies vision changes, chest pain, sob, abd. pain, fever. Pt. is a daily drinker and notes she had 6 vodka drinks today. H/A 07/16. Sxs are moderate in severity. No current modifying factors. - History Of Current Complaint Chief Complaint: EDFall Stated Complaint: HEADACHE PER EMS Time Seen by Provider: 05/25/19 14:18 Hx Obtained From: Patient - Allergies/Home Medications Allergies/Adverse Reactions: Allergies Allergy/AdvReac Type Severity Reaction Status Date / Time Sulfa (Sulfonamide Allergy Unknown Verified 01/23/19 07:12 Antibiotics) Reaction Details Home Medications: Home Medications Ferrous Sulfate 65 mg PO QAM 01/14/19 [History Confirmed 05/25/19] Thiamine TAB* [Vitamin B-1 TAB 100 MG*] 100 mg PO QAM 01/14/19 [History Confirmed 05/25/19] Trazodone HCl 50 mg PO BEDTIME 01/14/19 [History Confirmed 05/25/19] PMH/Surg Hx/FS Hx/Imm Hx Previously Healthy: Yes Endocrine/Hematology History: Reports: Hx Anemia - HISTORY OF, NOW ON IRON Denies: Hx Anticoagulant Therapy, Hx Diabetes, Other Endocrine/Hematological Disorders Cardiovascular History: Denies: Hx Hypertension, Hx Pacemaker/ICD, Other Cardiovascular Problems/ Disorders Respiratory History: Reports: Hx Asthma - HISTORY OF, NOT RECENT Denies: Other Respiratory Problems/Disorders GI History: Denies: Other GI Disorders History: Reports: Other Problems/Disorders - HISTORY OF UTIs Denies: Hx Renal Disease Musculoskeletal History: Reports: Hx Arthritis, Hx Bursitis - LEFT HIP Denies: Hx Osteoporosis, Other Musculoskeletal History Sensory History: Reports: Hx Cataracts - BILATERAL, Hx Contacts or Glasses - GLASSES, Hx Hearing Problem Denies: Hx Deafness, Hx Hearing Aid, Other Sensory Impairments Opthamlomology History: Reports: Hx Cataracts - BILATERAL, Hx Contacts or Glasses - GLASSES Denies: Other Sensory Impairments Neurological History: Reports: Hx Seizures - x 3 in 3-4 yrs, EtOH withdrawal related Denies: Other Neuro Impairments/Disorders Psychiatric History: Reports: Hx Depression, Hx Inpatient Treatment, Hx Substance Abuse - etoh Denies: Hx Anxiety, Hx Attention Deficit Hyperactivity Disorder, Hx Eating Disorder, Hx Panic Disorder, Hx Post Traumatic Stress Disorder, Hx Community Mental Health Tx, Hx Schizophrenia, Hx Bipolar Disorder, Hx Suicide Attempt, Hx of Violent Episodes Against Others, Other Psychiatric Issues/Disorders - Surgical History Hx Anesthesia Reactions: No - NO HISTORY OF ANESTHESIA Infectious Disease History: No Infectious Disease History: Denies: Traveled Outside the [place] in Last 30 Days - Family History Known Family History: Positive: Other - father of pancreatic cancer - Social History Occupation: Unemployed Lives: Alone Alcohol Use: None Alcohol Amount: 1L of vodka Substance Use Type: Reports: None Substance Use Comment - Amount & Last Used: 3 times a year Hx Tobacco Use: Yes Smoking Status (MU): Current Every Day Smoker Type: Cigarettes Amount Used/How Often: <1/2 PPD Have You Smoked in the Last Year: Yes Review of Systems Constitutional: Negative Negative: Fever, Chills ENT: Negative Cardiovascular: Negative Negative: Palpitations, Chest Pain Respiratory: Negative Negative: Shortness Of Breath, Cough Positive: Vomiting, Nausea Genitourinary: Negative Musculoskeletal: Negative Positive: Bruising Positive: Headache All Other Systems Reviewed And Are Negative: Yes Physical Exam Triage Information Reviewed: Yes Vital Signs On Initial Exam: Initial Vitals Temp Pulse Resp BP Pulse Ox 98.0 F 86 15 126/94 97 05/25/19 14:20 05/25/19 14:20 05/25/19 14:20 05/25/19 14:20 05/25/19 14:20 Vital Signs Reviewed: Yes Appearance: Positive: Pain Distress - Pt. sitting up in bed, appears uncomfortable. Answers questions appropriately. Skin: Positive: Warm, Dry Head/Face: Positive: Normal Head/Face Inspection Eyes: Positive: Normal, EOMI, [place] Neck: Positive: Supple Respiratory/Lung Sounds: Positive: Clear to Auscultation, Breath Sounds Present Cardiovascular: Positive: Normal, RRR Musculoskeletal: Positive: Normal, Strength/ROM Intact Neurological: Positive: Normal, Alert, Oriented to Person Place, Time, CN Intact II-III Psychiatric: Positive: Affect/Mood Appropriate Procedures - Sedation Patient Received Moderate/Deep Sedation with Procedure: No Diagnostics - Vital Signs Vital Signs Temp Pulse Resp BP Pulse Ox 05/25/19 14:20 98.0 F 86 15 126/94 97 - Laboratory Result Diagrams: 05/25/19 17:17 05/25/19 17:17 Lab Statement: Any lab studies that have been ordered have been reviewed, and results considered in the medical decision making process. Headache Course/Dx - Course Course Of Treatment: Pt. with headache after fall 2 days ago. Pt. is a daily drinker. No neuro deficits. Afebrile with stable VS. Will obtain brain ct to r/ o bleed. Tylenol and compazine PO given. Brain and neck CT negative for acute findings per [facility]. 1615: Pt. re-examined. She still notes frontal headache and notes she is now feeling dizzy. Pt. ambulated to bathroom with aid , no ataxia. Discussed with Dr. Carter. Will hydrate and given toradol and benadryl for headache. Basic labs and orthostatics ordered as well. Pt. will be signed out to [facility] Fernandez for lab results and disposition. - Diagnoses Differential Diagnosis/HQI/PQRI: Epidural Hematoma, Subdural Hematoma, Migraine , Tension Headache Provider Diagnoses: Fall, Closed head injury - Critical Care Time Critical Care Statement: Critical care time is provided exclusive of any time spent performing procedures. Discharge ED - Sign-Out/Discharge Documenting (check all that apply): Sign-Out Patient Signing out patient TO: Stan Way - Discharge Plan Condition: Improved Disposition: HOME Patient Education Materials: Head Injury (ED) Referrals: Vale Bonner MD [Primary Care Provider] - Additional Instructions: Call PCP on Monday for a follow up appointment in 1-2 days for recheck Increase fluids and rest Tylenol or motrin for pain as directed Return to ER if symptoms change or worsen - Billing Disposition and Condition Condition: IMPROVED Disposition: Home
[2019-05-25] MEDS ORDERED: NS 0.9% 1000 ML** 1,000 ML IV ONE (16:29)
[2019-05-25] MEDS ORDERED: Ketorolac INJ* 30 MG/ML 1 ML VIAL IV PUSH ONE (16:29)
[2019-05-25] MEDS: diPHENhydraMINE PO* 25 MG PO ONE ×2 (17:11→17:18)
[2019-05-25 17:25] LABS: ABS Basophils 0.1 10^3/ul (0-0.2); ABS Eosinophils 0.1 10^3/ul (0-0.6); ABS Lymphocytes 3.2 10^3/ul (1.0-4.8); ABS Monocytes 0.7 10^3/ul (0-0.8); ABS Neutrophils 5.8 10^3/ul (1.5-7.7); Eosinophil % 0.7 %; Hematocrit 44 % (35-47); Hemoglobin 15.4 g/dL (12.0-16.0); Lymphocyte % 32.5 %; Mean Corpuscular HGB Conc 36 g/dL (31-36); Mean Corpuscular Hemoglobin 31 pg (27-31); Mean Corpuscular Volume 88 fL (80-97); Mean Platelet Volume 6.6 fL (7.4-10.4); Nucleated Red Blood Cells % 0.1; Platelet Count 389 10^3/uL (150-450); Red Blood Count 4.92 10^6 /uL (3.70-4.87); Red Cell Distribution Width 14 % (10-15); White Blood Count 9.9 10^3/uL (3.5-10.8)
[2019-05-25 17:43] LABS: Albumin 4.7 g/dL (3.2-5.2); Albumin/Globulin Ratio 1.4 (1-3); BUN/Creatinine Ratio 15.4 (8-20); Calcium 9.4 mg/dL (8.6-10.3); EGFR African American 146.6 (>60); EGFR Non-African American 121.1 (>60); Globulin 3.3 g/dL (2-4); Magnesium 1.6 mg/dL (1.9-2.7); Potassium 4.3 mmol/L (3.5-5.0); Total Bilirubin 1.2 mg/dL (0.2-1.0)
[2019-05-25] MEDS ORDERED: Ketorolac INJ* 30 MG/ML 1 ML VIAL IV ONE (18:15)
[2019-05-25] MEDS ORDERED: diPHENhydraMINE IV* 50 MG/ML 1 ml VIAL (BENADRYL) IV ONE (18:15)
[2019-05-25] MEDS ORDERED: Metoclopramide IV* 5 MG/ML 2 ML VIAL IV ONE (18:16)
[2019-05-25] MEDS ORDERED: Magnesium Sulfate 2 GM IV* 2 GM/50 ML BAG IVPB ONE (18:43)
--- NOTE | 2019-05-25 18:54 | PN ---
Progress Note - Progress Note Date of Service: 05/25/19 Note: Patient signed out to me by Otf ESCALERA pending return of lab work. Magnesium 1.6. Magnesium 2 g IV administered. Patient has persistent headache after initial medications, more Toradol IV, Benadryl IV and Reglan IV administered. Vital signs within normal limits. CT brain and C-spine negative. Patient discharged home in stable and clinically sober condition with diagnosis of fall , head injury, nausea or vomiting, headache, hypomagnesemia, etoh abuse.
[2019-05-25] MEDS ORDERED: LORazepam TAB(*) 1 MG PO ONE (21:53)
[2019-05-25 23:21] VITALS: BP 119/84
== END 2019-05-25 23:20 | disposition home or self-care (01) ==
LOC: ED 14:17
DX: S09.90XA Unspecified injury of head, initial encounter (principal); R51 Headache; Z88.2 Allergy status to sulfonamides; F17.210 Nicotine dependence, cigarettes, uncomplicated; R11.2 Nausea with vomiting, unspecified; W01.190A Fall on same level from slipping, tripping and stumbling with subsequent striking against furniture, initial encounter; Y92.002 Bathroom of unspecified non-institutional (private) residence as the place of occurrence of the external cause
CPT/HCPCS: 36415; 70450; 72125; 80053; 80320; 83735; 85025; 96361; 96365; 96366; 96375; 96376; 99284; A9270-GY; G0480; J1885; J2765; J3475; Q0164

== ENCOUNTER 2023-10-11 02:22 | Observation (INO) ==
[2023-10-11 02:59] LABS: ABS Basophils 0.1 10^3/uL (0.0-0.1); ABS Eosinophils 0.1 10^3/uL (0.0-0.5); ABS Lymphocytes 4.7 10^3/uL (1.0-4.8); ABS Monocytes 1.2 10^3/uL (0.0-0.9); ABS Neutrophils 6.9 10^3/uL (1.5-7.6); ABS Nucleated RBC 0.01 10^3/ul; Eosinophil % 1.1 %; Hematocrit 40.6 % (35-45); Hemoglobin 13.7 g/dL (11.5-14.3); Mean Corpuscular Hgb Conc 33.8 g/dL (31-36); Mean Corpuscular Volume 88.8 fL (80-97); Mean Platelet Volume 7.3 fL (7.5-11.2); Platelet Count 483 10^3/uL (150-450); Red Blood Count 4.58 10^6/uL (3.63-4.92); Red Cell Distribution Width 13.4 % (12-17); White Blood Count 13.1 10^3/uL (3.8-11.8)
[2023-10-11 03:03] LABS: INR 1.07 (0.85-1.14)
[2023-10-11 03:41] LABS: Albumin 4.3 g/dL (3.2-5.2); Albumin/Globulin Ratio 1.6 (1-3); Calcium 9.7 mg/dL (8.6-10.3); Creatinine, Serum 0.6 mg/dL (0.51-0.95); Globulin 2.7 g/dL (2-4); Total Bilirubin 0.3 mg/dL (0.2-1.0); eGFR CKD-EPI 101.4 (>60)
[2023-10-11 03:55] LABS: High Sensitivity Troponin 1 Hr 20 pg/mL (<15)
[2023-10-11 04:14] LABS: Potassium 3.8 mmol/L (3.5-5.0)
[2023-10-11 05:01] LABS: High Sensitivity Troponin 3 Hr 25 pg/mL (<15)
[2023-10-11 06:12] LABS: High Sensitivity Troponin 3 Hr 28 pg/mL (<15)
[2023-10-11] MEDS ORDERED: Ondansetron 4 mg VIAL 2 MG/ML 2 ml VIAL IV PRN (07:24)
[2023-10-11 12:48] VITALS: BP 97/72
[2023-10-11] MEDS ORDERED: Aminophylline 25 MG/ML VIAL ONE (14:36)
[2023-10-11] MEDS ORDERED: Regadenoson 0.4 MG/5 ML SYRINGE ONE (14:36)
== END 2023-10-11 17:10 | disposition home or self-care (01) ==
LOC: ED 02:22 → EDHOLD 02:22 → MEDTELE 11:24
PROVIDERS: ADMIT Student in an Organized Health Care Education/Training Program; ATTEND Student in an Organized Health Care Education/Training Program